=== PATIENT | female | born 1965 | race Caucasian/White ===

== ENCOUNTER 2019-09-13 13:59 | Emergency (ER) | payer BC ==
[2019-09-13 14:08] VITALS: TEMP 99
[2019-09-13] MEDS ORDERED: NITROGLYCERIN SL TABS 0.4 MG TAB SUBLINGUAL STA (14:22)
--- NOTE | 2019-09-13 14:48 | ED ---
General Adult HPI - General Chief complaint: Abdominal Pain Stated complaint: Throat pain Time Seen by Provider: 09/13/19 14:12 Source: patient Mode of arrival: ambulatory Limitations: no limitations - History of Present Illness Initial comments: Patient is a 53-year-old female presenting to the emergency Department with complaints of an esophageal spasm x 2 hours. Patient states she has had these spasms in the past but they have never lasted this long or has been this intense. Patient states prior to this spasm beginning she ate a few pieces of t urkey and mac & cheese and then noticed a spasm starting. She states this spasm feels like her past spasms. Patient states she tried to take a Benadryl tablet to help with her symptoms however she vomited it back up. Patient describes the pain at the distal end of her sternum. She has been unable to eat or drink anything since this spasm started. She has no history of heart disease. She denies recent fever, chills, abdominal pain. She has no other complaints this time. Upon arrival to the ER, BP was elevated at 172/99, rest of vitals are normal. - Related Data Home Medications Medication Instructions Recorded Confirmed Aspirin [Adult Low Dose Aspirin EC] 81 mg PO DAILY 05/18/19 05/18/19 Ibuprofen [Advil] 400 mg PO DAILY PRN 05/18/19 05/18/19 Metoprolol Succinate (ER) [Toprol 25 mg PO HS 05/18/19 05/18/19 Xl] Bristol-3 Fatty Acids [Bristol-3] 1,000 mg PO DAILY 05/18/19 05/18/19 Pediatric Multivitamin No.144 1 each PO DAILY 05/18/19 05/18/19 [Children's Chewable Vitamin] Turmeric Root Extract [Turmeric] 1 dose PO DAILY 05/18/19 05/18/19 Previous Rx's Medication Instructions Recorded Diazepam [Valium] 5 mg PO Q8HR PRN #3 tab 09/13/19 Metoclopramide [Reglan] 10 mg PO BID PRN #5 tab 09/13/19 Allergies Allergy/AdvReac Type Severity Reaction Status Date / Time azithromycin Allergy Unknown Rash/Hives Verified 09/13/19 14:09 [From Zithromax Z-Jose] cannabidiol (CBD) extract Allergy Unknown Dyspnea Verified 09/13/19 14:09 [From Epidiolex] cephalexin [From Keflex] Allergy Unknown Rash/Hives Verified 09/13/19 14:09 erythromycin base Allergy Unknown Rash/Hives Verified 09/13/19 14:09 marijuana Allergy Unknown Dyspnea Verified 09/13/19 14:09 Penicillins Allergy Unknown Rash/Hives Verified 09/13/19 14:09 Sulfa (Sulfonamide Allergy Unknown Dyspnea Verified 09/13/19 14:09 Antibiotics) sulfamethoxazole Allergy Unknown Rash/Hives Verified 09/13/19 14:09 [From Bactrim] trimethoprim [From Bactrim] Allergy Unknown Rash/Hives Verified 09/13/19 14:09 ibuprofen AdvReac Unknown FEELS LIKE Verified 09/13/19 14:09 HER HEAD WILL EXPLODE nitrofurantoin AdvReac Unknown PAIN IN Verified 09/13/19 14:09 [From Macrodantin] EXTREMITIES. Review of Systems ROS Statement: Those systems with pertinent positive or pertinent negative responses have been documented in the HPI. ROS Other: All systems not noted in ROS Statement are negative. Past Medical History Past Medical History: Fibromyalgia, Hypertension Additional Past Medical History / Comment(s): PSORIATIC ARTHRITIS, IRREGULAR HEART BEAT, SNORES, ALLERGIES, HX OF GESTATIONAL DIABETES (2004), KIDNEY STONES., PT STATES SHE HAS A BLISTER ON HER HAND-YELLOW IN THE CENTER AND RED AROUND-LIKE A MOSQUITO BITE- TOLD PT TO COVER IT WHEN SHE COMES. History of Any Multi-Drug Resistant Organisms: None Reported Additional Past Surgical History / Comment(s): WISDOME TEETH Past Anesthesia/Blood Transfusion Reactions: Unable to Obtain, Family History of Problems w/ Anesthesia, Motion Sickness Additional Past Anesthesia/Blood Transfusion Reaction / Comment(s): NO ANESTHESIA HX. MOTHER HAD SEVERE SHAKING FROM XYLOCAINE. Past Psychological History: ADD/ADHD, Anxiety, Depression, PTSD Smoking Status: Never smoker Past Alcohol Use History: None Reported Past Drug Use History: None Reported - Past Family History Father Family Medical History: Cancer, CVA/TIA Mother Family Medical History: CVA/TIA General Exam - General Exam Comments Initial Comments: GENERAL: Patient looks uncomfortable, sitting up straight on the edges the bed. She has vomited once during the exam. HEAD: Atraumatic, normocephalic. EYES: Pupils equal round and reactive to light, extraocular movements intact, sclera anicteric, conjunctiva are normal. ENT: TMs normal, nares patent, oropharynx clear without exudates. Moist mucous membranes. NECK: Normal range of motion, supple without lymphadenopathy or JVD. LUNGS: Breath sounds clear to auscultation bilaterally and equal. No wheezes rales or rhonchi. HEART: Regular rate and rhythm without murmurs, rubs or gallops. ABDOMEN: Soft, nontender, normoactive bowel sounds. No guarding, no rebound. No masses appreciated. : Deferred EXTREMITIES: Normal range of motion, no pitting or edema. No clubbing or cyanosis. NEUROLOGICAL: Normal speech, normal gait. PSYCH: Normal mood, normal affect. SKIN: Warm, Dry, normal turgor, no rashes or lesions noted. Limitations: no limitations Course Vital Signs 09/13/19 09/13/19 14:03 16:43 Temperature 99.0 F Pulse Rate 79 78 Respiratory 18 16 Rate Blood Pressure 172/99 176/95 O2 Sat by Pulse 98 98 Oximetry EKG Findings - EKG Comments: EKG Findings:: Ventricular rate 74, SC interval 160, QTC 457. Normal sinus rhythm. No acute ST segment changes. Medical Decision Making - Medical Decision Making Patient is a 53-year-old female presenting with an esophageal spasm for the past 2 hours. She has had these in the past but they have never lasted this long or this intense. Patient was given nitro to help with symptoms although she vomited that back up. Patient was given Reglan and Valium which did resolve her symptoms. Patient was able to drink a glass of water as well as a some crackers without any difficulty. Patient was observed for another 15 minutes and she is requesting to be discharged. I discussed with patient that although her symptoms are most likely related to her esophageal spasm as her previous episodes, I recommended staying for another troponin or possible observation to rule out cardiac issues. Patient declined, and is requesting to go home. Patient will follow-up with GI for further testing. Patient was giving a couple tablets of Valium in case he spasms happen again. She is in agreement with this plan of care and is stable for discharge at this time. Strict return parameters were discussed with the patient and she verbalized understanding. Patient has remained symptom-free. Case discussed with Dr. Gordon. - Lab Data Result diagrams: 09/13/19 14:42 09/13/19 14:42 Lab Results 09/13/19 09/13/19 09/13/19 Range/Units 14:42 14:42 14:42 WBC 7.7 (3.8-10.6) k/uL RBC 5.08 (3.80-5.40) m/uL Hgb 14.8 (11.4-16.0) gm/dL Hct 44.1 (34.0-46.0) % MCV 86.8 (80.0-100.0) fL MCH 29.1 (25.0-35.0) pg MCHC 33.6 (31.0-37.0) g/dL RDW 13.0 (11.5-15.5) % Plt Count 316 (150-450) k/uL Neutrophils % 64 % Lymphocytes % 23 % Monocytes % 6 % Eosinophils % 4 % Basophils % 1 % Neutrophils # 4.9 (1.3-7.7) k/uL Lymphocytes # 1.8 (1.0-4.8) k/uL Monocytes # 0.4 (0-1.0) k/uL Eosinophils # 0.3 (0-0.7) k/uL Basophils # 0.0 (0-0.2) k/uL Sodium 141 (137-145) mmol/L Potassium 4.7 (3.5-5.1) mmol/L Chloride 106 (98-107) mmol/L Carbon Dioxide 27 (22-30) mmol/L Anion Gap 8 mmol/L BUN 15 (7-17) mg/dL Creatinine 0.76 (0.52-1.04) mg/dL Est GFR (CKD-EPI)AfAm >90 (>60 ml/min/1.73 sqM) Est GFR (CKD-EPI)NonAf >90 (>60 ml/min/1.73 sqM) Glucose 108 H (74-99) mg/dL Calcium 10.2 (8.4-10.2) mg/dL Total Bilirubin 0.4 (0.2-1.3) mg/dL AST 26 (14-36) U/L ALT 23 (4-34) U/L Alkaline Phosphatase 134 H (38-126) U/L Troponin I <0.012 (0.000-0.034) ng/mL Total Protein 8.2 (6.3-8.2) g/dL Albumin 4.9 (3.5-5.0) g/dL Disposition Clinical Impression: Esophageal spasm Disposition: HOME SELF-CARE Condition: Stable Instructions (If sedation given, give patient instructions): Esophageal Spasm (ED) Additional Instructions: Please return to the Emergency Department if symptoms worsen or any other concerns. Follow up with GI as discussed. Prescriptions: Metoclopramide [Reglan] 10 mg PO BID PRN #5 tab PRN Reason: GERD Diazepam [Valium] 5 mg PO Q8HR PRN #3 tab PRN Reason: Spasms Is patient prescribed a controlled substance at d/c from ED?: Yes When asked, does pt state using other controlled substances?: No If prescribed controlled substance>3 days was MAPS reviewed?: Prescribed <3 Days Referrals: None,Stated [Primary Care Provider] - 1-2 days Macy Tolentino MD [STAFF PHYSICIAN] - 1-2 days
[2019-09-13] MEDS ORDERED: METOCLOPRAMIDE 5 MG/ML 2 ML VIAL IVP STA (14:54)
[2019-09-13] MEDS ORDERED: DIAZEPAM 5 MG/ML 2 ML INJ IVP STA (14:54)
[2019-09-13 15:07] LABS: Basophils % (A) 1 %; Eosinophils # (A) 0.3 k/uL (0-0.7); Eosinophils % (A) 4 %; HCT 44.1 % (34.0-46.0); HGB 14.8 gm/dL (11.4-16.0); Lymphocytes # (A) 1.8 k/uL (1.0-4.8); Lymphocytes % (A) 23 %; MCH 29.1 pg (25.0-35.0); MCHC 33.6 g/dL (31.0-37.0); MCV 86.8 fL (80.0-100.0); Mean Platelet Volume 7.5; Monocytes # (A) 0.4 k/uL (0-1.0); Monocytes % (A) 6 %; Neutrophils # (A) 4.9 k/uL (1.3-7.7); Neutrophils % (A) 64 %; Platelet Count 316 k/uL (150-450); RBC 5.08 m/uL (3.80-5.40); WBC 7.7 k/uL (3.8-10.6)
[2019-09-13 15:26] LABS: ALT 23 U/L (4-34); AST 26 U/L (14-36); African American GFR (CKD) >90 (>60 ml/min/1.73 sqM); Albumin 4.9 g/dL (3.5-5.0); Alkaline Phosphatase 134 U/L (38-126); Anion Gap 8 mmol/L; Blood Urea Nitrogen 15 mg/dL (7-17); Calcium 10.2 mg/dL (8.4-10.2); Carbon Dioxide 27 mmol/L (22-30); Chloride 106 mmol/L (98-107); Glucose 108 mg/dL (74-99); Non-African American GFR(CKD) >90 (>60 ml/min/1.73 sqM); Potassium 4.7 mmol/L (3.5-5.1); Sodium 141 mmol/L (137-145); Total Bilirubin 0.4 mg/dL (0.2-1.3); Total Protein 8.2 g/dL (6.3-8.2)
--- NOTE | 2019-09-13 15:34 | XR ---
EXAMINATION TYPE: XR soft tissue neck DATE OF EXAM: 09/13/2019 COMPARISON: NONE HISTORY: Pain TECHNIQUE: 2 views FINDINGS: Epiglottis appears normal. Prevertebral soft tissues are not enlarged. Subglottic trachea a ppears normal. There is some spondylosis in the lower cervical spine. There is mild straightening of the vertebra. IMPRESSION: Spondylotic changes. No fracture.
--- NOTE | 2019-09-13 15:35 | XR ---
EXAMINATION TYPE: XR chest 2V DATE OF EXAM: 09/13/2019 COMPARISON: NONE HISTORY: Pain TECHNIQUE: 2 views FINDINGS: Heart and mediastinum are normal. Lungs are clear. Diaphragm is normal. Bony thorax appears normal. IMPRESSION: Normal chest.
[2019-09-13 16:44] VITALS: BP 176/95; PULSE 78; RESP 16
== END 2019-09-13 16:39 | disposition home or self-care (01) ==
LOC: EC 13:59
DX: K22.4 Dyskinesia of esophagus (principal); I10 Essential (primary) hypertension; Z79.82 Long term (current) use of aspirin; Z79.899 Other long term (current) drug therapy; Z88.0 Allergy status to penicillin; Z88.1 Allergy status to other antibiotic agents; Z88.2 Allergy status to sulfonamides; Z88.6 Allergy status to analgesic agent; Z88.8 Allergy status to other drugs, medicaments and biological substances
CPT/HCPCS: 36415; 93005; 80053; 84484; 85025; 70360; 71046; 99284; 96374; 96375; J2765; J3360

== ENCOUNTER 2022-09-30 16:25 | Emergency (ER) | payer BC ==
[2022-09-30] MEDS ORDERED: METOCLOPRAMIDE 5 MG/ML 2 ML VIAL IVP STA (16:47)
--- NOTE | 2022-09-30 16:50 | ED ---
General Adult HPI - General Chief complaint: Skin/Abscess/Foreign Body Stated complaint: food stuck in esphogas Time Seen by Provider: 09/30/22 16:38 Source: patient, RN notes reviewed, old records reviewed Mode of arrival: ambulatory Limitations: no limitations - History of Present Illness Initial comments: 56-year-old female presents to the emergency room with complaints of eating beef about an hour ago, with feeling of it being stuck in her esophagus. She has a history of this happening, states usually with beef. She states has esophageal spasms that occur monthly. Patient has a history of fibromyalgia, anxiety, hypertension and psoriatic arthritis. -: hour(s) (1) Location: chest Radiation: non-radiation Severity scale (1-10): 8 Quality: constant Consistency: constant Improves with: none Associated Symptoms: nausea/vomiting - Related Data Home Medications Medication Instructions Recorded Confirmed Aspirin [Adult Low Dose Aspirin EC] 81 mg PO DAILY 05/18/19 05/18/19 Ibuprofen [Advil] 400 mg PO DAILY PRN 05/18/19 05/18/19 Metoprolol Succinate (ER) [Toprol 25 mg PO HS 05/18/19 05/18/19 Xl] Franklin-3 Fatty Acids [Franklin-3] 1,000 mg PO DAILY 05/18/19 05/18/19 Pediatric Multivitamin No.144 1 each PO DAILY 05/18/19 05/18/19 [Children's Chewable Vitamin] Turmeric Root Extract [Turmeric] 1 dose PO DAILY 05/18/19 05/18/19 Previous Rx's Medication Instructions Recorded Metoclopramide [Reglan] 10 mg PO BID PRN #5 tab 09/13/19 diazePAM [Valium] 5 mg PO Q8HR PRN #3 tab 09/13/19 Allergies Allergy/AdvReac Type Severity Reaction Status Date / Time azithromycin Allergy Unknown Rash/Hives Verified 09/30/22 16:30 [From Zithromax Z-Jose] cannabidiol (CBD) extract Allergy Unknown Dyspnea Verified 09/30/22 16:30 [From Epidiolex] cephalexin [From Keflex] Allergy Unknown Rash/Hives Verified 09/30/22 16:30 erythromycin base Allergy Unknown Rash/Hives Verified 09/30/22 16:30 marijuana (cannabis) Allergy Unknown Dyspnea Verified 09/30/22 16:30 [marijuana] Penicillins Allergy Unknown Rash/Hives Verified 09/30/22 16:30 Sulfa (Sulfonamide Allergy Unknown Dyspnea Verified 09/30/22 16:30 Antibiotics) sulfamethoxazole Allergy Unknown Rash/Hives Verified 09/30/22 16:30 [From Bactrim] trimethoprim [From Bactrim] Allergy Unknown Rash/Hives Verified 09/30/22 16:30 ibuprofen AdvReac Unknown FEELS LIKE Verified 09/30/22 16:30 HER HEAD WILL EXPLODE nitrofurantoin AdvReac Unknown PAIN IN Verified 09/30/22 16:30 [From Macrodantin] EXTREMITIES. Review of Systems ROS Statement: Those systems with pertinent positive or pertinent negative responses have been documented in the HPI. ROS Other: All systems not noted in ROS Statement are negative. Past Medical History Past Medical History: Fibromyalgia, Hypertension Additional Past Medical History / Comment(s): PSORIATIC ARTHRITIS, IRREGULAR HEART BEAT, SNORES, ALLERGIES, HX OF GESTATIONAL DIABETES (2004), KIDNEY STONES., PT STATES SHE HAS A BLISTER ON HER HAND-YELLOW IN THE CENTER AND RED AROUND-LIKE A MOSQUITO BITE- TOLD PT TO COVER IT WHEN SHE COMES. History of Any Multi-Drug Resistant Organisms: None Reported Additional Past Surgical History / Comment(s): WISDOME TEETH, basal cell carcinoma removal from right side of face Past Anesthesia/Blood Transfusion Reactions: Unable to Obtain, Family History of Problems w/ Anesthesia, Motion Sickness Additional Past Anesthesia/Blood Transfusion Reaction / Comment(s): NO ANESTHESIA HX. MOTHER HAD SEVERE SHAKING FROM XYLOCAINE. Past Psychological History: ADD/ADHD, Anxiety, Depression, PTSD Smoking Status: Never smoker Past Alcohol Use History: None Reported Past Drug Use History: None Reported - Past Family History Father Family Medical History: Cancer, CVA/TIA Mother Family Medical History: CVA/TIA General Exam Limitations: no limitations General appearance: alert, in no apparent distress Head exam: Present: atraumatic Eye exam: Absent: scleral icterus, conjunctival injection, periorbital swelling ENT exam: Present: mucous membranes moist Neck exam: Absent: tenderness, meningismus Respiratory exam: Present: normal lung sounds bilaterally. Absent: respiratory distress, accessory muscle use Cardiovascular Exam: Present: regular rate GI/Abdominal exam: Present: soft Extremities exam: Present: normal capillary refill Neurological exam: Present: alert, oriented X3, normal gait Psychiatric exam: Present: anxious Skin exam: Present: warm, dry, normal color. Absent: cyanosis, diaphoretic, petechiae, pallor Course Vital Signs 09/30/22 09/30/22 09/30/22 16:27 17:04 18:04 Temperature 97.3 F L 98.2 F Pulse Rate 84 75 73 Respiratory 18 16 18 Rate Blood Pressure 166/84 141/82 128/77 O2 Sat by Pulse 98 99 97 Oximetry 09/30/22 18:17 Temperature 98.0 F Pulse Rate 76 Respiratory 17 Rate Blood Pressure 130/72 O2 Sat by Pulse 95 Oximetry - Reevaluation(s) Reevaluation #1: 09/30/22 17:35 She continues to have foreign body sensation after Valium and Reglan. No vomiting at this time. She was offered transfer to [facility] for endoscopy and declines at this time states that she wants to just wait a little bit longer. We will try glucagon IV with warm water orally. Time: 17:35 Reevaluation #2: 09/30/22 18:05 Patient requesting nitroglycerin, states that she had relief last time with this medication. According to medical records patient was not relieved with nitro and was given Reglan and Valium which did resolve her symptoms. I am agreeable to trying nitroglycerin as the Valium and Reglan and glucagon, have not worked thus far. Time: 18:05 Reevaluation #3: 09/30/22 18:56 She states that she is now feeling better and does not want to be transferred to [facility]. She wishes to be discharged. Time: 18:56 Medical Decision Making - Medical Decision Making She presents with retrosternal chest pain after eating a piece of beef about one hour prior to arrival. She has a history of this in the past and seen in the emergency room. Has not seen gastroenterology. States she's been having episodess more frequently with spasms and most often problems with swallowing beef. Patient has a history of fibromyalgia, hypertension, psoriatic arthritis, basal cell carcinoma She was given Valium and Reglan IV with no improvement in her symptoms. We then tried glucagon IV with warm water ingestion, no improvement. She was given nitroglycerin also with no improvement. Chest x-ray interpreted by me shows no evidence of esophageal foreign body. Trachea midline. No evidence of consolidation. Radiologist interpretation no acute cardiopulmonary disease or process. No radiopaque foreign body. She was offered transfer to [facility] for GI services that are not available here today and is agreeable, states will have her driver messenger her. Accepting Dr. Vasquez Upon preparing paperwork for transfer patient states that she now does not want to be transferred and is feeling better and wants to be discharged. She was instructed to follow up with gastroenterology. My attending is Dr Velasquez Was pt. sent in by a medical professional or institution? @ -no Did you speak to anyone other than the patient for history? @ -no Did you review nursing and triage notes? @ -yes i agree Were old charts reviewed? @ -yes previous visits in ER for same Differential Diagnosis? @ -Esophageal spasm, ingested foreign body, esophageal stricture EKG interpreted by me (3pts min.)? @ -[none] X-rays interpreted by me (1pt min.)? @ -yes as above CT interpreted by me (1pt min.)? @ -[none] U/S interpreted by me (1pt. min.)? @ -[none] What testing was considered but not performed? (CT, X-rays, U/S, labs)? Why? @ no What meds were considered but not given? Why? @ -none Did you discuss the management of the patient with other professionals? @ -no Did you reconcile home meds? @ -no Was smoking cessation discussed for >3mins.? @ -[none] Was critical care preformed (if so, how long)? @ -no Were there social determinants of health that impacted care today? How? (Homelessness, low income, unemployed, alcoholism, drug addiction, transportation, low edu. Level, literacy, decrease access to med. care, group home, rehab)? @ -none Was there de-escalation of care discussed even if they declined? (Discuss DNR or withdrawal of care, Hospice)? @ -no What co-morbidities impacted this encounter? (DM, HTN, Smoking, COPD, CAD, Cancer, CVA, Hep., AIDS, mental health diagnosis, sleep apnea, morbid obesity)? @ -Fibromyalgia, hypertension, obesity Was patient admitted / discharged? @ -Discharged Undiagnosed new problem with uncertain prognosis? @ -[none] Drug Therapy requiring intensive monitoring for toxicity (Heparin, Nitro, Insulin, Cardizem)? @ -no Were any procedures done? @ -no Diagnosis/symptom? @ -Esophageal foreign body sensation Acute, or Chronic, or Acute on Chronic? @ -Acute on chronic Uncomplicated (without systemic symptoms) or Complicated (systemic symptoms)? @ -Complicated Side effects of treatment? @ -[none] Exacerbation, Progression, or Severe Exacerbation] @ -[no] Poses a threat to life or bodily function? @ -[no] Disposition Clinical Impression: Sensation of foreign body in esophagus Disposition: HOME SELF-CARE Condition: Good Instructions (If sedation given, give patient instructions): Esophageal Foreign Body (ED) Additional Instructions: Please follow-up with gastroenterology for continuation of care. Return to the emergency room with any new or concerning symptoms. Is patient prescribed a controlled substance at d/c from ED?: No Referrals: Jeyson Mijares DO [Primary Care Provider] - 1-2 days Macy Tolentino MD [STAFF PHYSICIAN] - 1-2 days Time of Disposition: 18:55 Decision Date: 09/30/22 Decision Time: 18:30 - Out of Hospital Transfer - Req. Specs Out of Hospital Transfer - Requested Specifics: Other Emergency Center ([facility])
[2022-09-30] MEDS ORDERED: GLUCAGON 1 MG/ML VIAL IVP STA (17:35)
[2022-09-30] MEDS ORDERED: NITROGLYCERIN SL TABS 0.4 MG TAB SUBLINGUAL STA (18:03)
--- NOTE | 2022-09-30 18:04 | XR ---
EXAMINATION TYPE: XR chest 2V DATE OF EXAM: 09/30/2022 5:11 PM COMPARISON: Chest x-ray 09/13/2019 TECHNIQUE: XR chest 2V . CLINICAL INDICATION:Female, 56 years old with history of foreign body; FINDINGS: Lungs/Pleura: There is no evidence of pleural effusion, focal consolidation, or pneumothorax. Pulmonary vascularity: Unremarkable. Heart/mediastinum: Cardiomediastinal silhouette is unremarkable. Musculoskeletal: No acute osseous pathology. Other findings: No radiopaque foreign body. IMPRESSION: No acute cardiopulmonary disease/process. No radiopaque foreign body.
[2022-09-30 18:18] VITALS: BP 130/72; PULSE 76; RESP 17; TEMP 98
== END 2022-09-30 19:05 | disposition home or self-care (01) ==
LOC: EC 16:25
DX: T18.128A Food in esophagus causing other injury, initial encounter (principal); I10 Essential (primary) hypertension; F41.9 Anxiety disorder, unspecified; F32.A Depression, unspecified; Z88.0 Allergy status to penicillin; Z88.2 Allergy status to sulfonamides; Z88.1 Allergy status to other antibiotic agents; Z88.6 Allergy status to analgesic agent; Z88.8 Allergy status to other drugs, medicaments and biological substances; Z79.82 Long term (current) use of aspirin; Z79.899 Other long term (current) drug therapy
CPT/HCPCS: 71046; 99284; 96374; 96375 ×2; J1610; J2765; J3360

== ENCOUNTER → 2023-01-02 | Outpatient (CLI) | payer BC ==
--- NOTE | 2023-01-02 10:51 | CA ---
Exercise Stress Test Report Name: Michelle Doramn Exam Date: 01/02/2023 09:12 Exam Location: [place] Stress Ht (in): 68 Wt (lb): 227 BSA: 2.16 Ordering Phys: Jeyson Mijares DO Referring Phys: SADIE, Technologist: Ron Mast Age: 57 Gender: F : 1965 Procedure CPT: Indications: R94.31 ABNORMAL ELECTROCARDIOGRAM [ECG] [EKG] ICD-10 Codes: Patient History: Medications: Meds past 24 hrs: Pretest Chest Pain: STRESS TEST Protocol Exercise Duration (min:sec): 11:[address] Depressions (mm): 0 Angina Score: 0 Marshall Score: 11 Resting HR (bpm): 86 Peak HR (bpm): 152 Resting BP (mmHg): 131 / 81 Peak BP (mmHg): 1965 / 62 MPHR: 165 Target HR: 140 % MPHR: 92 METS: 10.3 Total Dose: Peak Dose: Atropine: Double Product: [id number] BP Response: Normal Resting Blood Pressure - Appropriate Stress Termination: Reached target heart rate Stress Symptoms: NO SYMPTOMS Stress Summary: The patient's target heart rate was achieved ECG ANALYSIS Resting ECG: Sinus rhythm. Normal conduction. No arrhythmias. Normal repolarization. Stress ECG: No ECG evidence of ischemia with exercise. CONCLUSIONS Patient falls into low-risk group (DTS >= +5). This associates the patient with an annual CV mortality <= 0.5%. 1. Good exercise tolerance 2.Normal ST segment response to stress. 3. Normal electrocardiographic stress testing Dr. Kecia Morales MD (Electronically Signed) Final Date: 02 Jan 2023 10:50
== END | disposition home or self-care (01) ==
LOC: RADNMMAIN 08:43
PROVIDERS: ATTEND Family Medicine
DX: R94.31 Abnormal electrocardiogram [ECG] [EKG] (principal); R07.9 Chest pain, unspecified
CPT/HCPCS: 93017

== ENCOUNTER → 2023-03-16 | Outpatient (CLI) | payer BC ==
--- NOTE | 2023-03-16 11:09 | XR ---
EXAMINATION TYPE: XR Hip Bilateral and AP pelvis DATE OF EXAM: 03/16/2023 10:00 AM INDICATION: Patient age:Female; 57 years old; Reason for study: PAIN; COMPARISON: None. TECHNIQUE: The bilateral hips were examined in the frontal and lateral projections and a AP pelvis. FINDINGS: No evidence for acute process, joint dislocation or significant soft tissue swelling. Osteo phyte formation of the superior acetabulum of the hips. IMPRESSION: 1. No evidence for acute process. 2. Mild hip osteoarthrosis bilaterally.
--- NOTE | 2023-03-16 11:15 | XR ---
EXAMINATION TYPE: XR foot complete bilateral DATE OF EXAM: 03/16/2023 10:00 AM INDICATION: Patient age:Female; 57 years old; Reason for study: PAIN; PHH. COMPARISON: None TECHNIQUE: The bilateral feet were examined in the AP, oblique, and lateral projections. FINDINGS: No evidence of any acute osseous pathology. No evidence of soft tissue swelling. Joints are preserve d. Calcaneal plantar spurring is seen bilaterally. Minimal multifocal joint space tearing and osteophyte formation. IMPRESSION: 1. No evidence of acute fracture. 2. Minimal degeneration changes throughout the feet.
--- NOTE | 2023-03-16 11:18 | XR ---
EXAMINATION TYPE: XR lumbar spine 2 or 3V DATE OF EXAM: 03/16/2023 10:00 AM INDICATION: Patient age:Female; 57 years old; Reason for study: PAIN; COMPARISON: None TECHNIQUE: Frontal, lateral and coned in L5-S1 lateral views of the spine. FINDINGS: No evidence of any acute osseous pathology. No evidence of loss of vertebral body height i s seen. Is increased lordosis of the lower lumbar spine. Mild scattered disc space narrowing worse at L5-S1. Multilevel marginal osteophyte formation throughout the visualized spine worse in the lower l umbar spine. There is facet joint arthropathy throughout the spine worse at L5-S1. Scattered at least mild neural foraminal stenosis at L5-S1. The spinous processes and straight pseudoarthrosis at L4-L5 . IMPRESSION: 1. No acute fracture. 2. Moderate multilevel disc degeneration. 3. Findings of Baastrup's disease.
[2023-03-16 13:22] LABS: Basophils # (A) 0.03 X 10*3/uL (0.00-0.10); Basophils % (A) 0.6 %; Eosinophils # (A) 0.17 X 10*3/uL (0.04-0.35); Eosinophils % (A) 3.2 %; HCT 42.6 % (37.2-46.3); Lymphocytes # (A) 1.78 X 10*3/uL (0.90-5.00); Lymphocytes % (A) 33.3 %; MCH 28.9 pg (27.0-32.0); MCHC 32.9 d/dL (32.0-37.0); MCV 87.8 FL (80.0-97.0); Mean Platelet Volume 10.7 FL (9.5-12.2); Monocytes % (A) 9.3 %; NRBC Per 100 WBC 0 X 10*3/uL (0.00-0.01); Neutrophils # (A) 2.86 X 10*3/uL (1.80-7.70); Neutrophils % (A) 53.4 %; Platelet Count 276 X 10*3/uL (140-440); RBC 4.85 X 10*6/uL (4.10-5.20); WBC 5.35 X 10*3/uL (4.50-10.00)
[2023-03-16 13:42] LABS: ALT 16 U/L (8-44); AST 15 U/L (13-35); Albumin 4.8 d/dL (3.8-4.9); Alkaline Phosphatase 104 U/L (41-126); BUN/Creat Ratio 17.44 Ratio (12.00-20.00); Blood Urea Nitrogen 15.7 mg/dL (9.0-27.0); Calcium 10.1 mg/dL (8.7-10.3); Carbon Dioxide 24.9 mmol/L (21.6-31.8); Chloride 104 mmol/L (96-109); Chol/HDL Ratio 4.03 Ratio; Globulin 2.4 d/dL (1.6-3.3); Glucose 92 mg/dL (70-110); LDL Cholesterol,Calculated 146.1 mg/dL (0.0-131.0); Potassium 4.7 mmol/L (3.5-5.5); Sodium 142 mmol/L (135-145); T4, Free (Free Thyroxine) 1.29 ng/dL (0.80-1.80); Thyroid Peroxidase Antibodies <9.0 U/mL (0.0-33.0); Total Bilirubin 0.6 mg/dL (0.3-1.2); Total Protein 7.2 d/dL (6.2-8.2)
== END | disposition home or self-care (01) ==
LOC: LABWHC1 09:17
PROVIDERS: ATTEND Family Medicine
DX: M16.0 Bilateral primary osteoarthritis of hip (principal); M51.36 Other intervertebral disc degeneration, lumbar region; M48.26 Kissing spine, lumbar region; M79.671 Pain in right foot; I10 Essential (primary) hypertension; R31.9 Hematuria, unspecified; Z83.49 Family history of other endocrine, nutritional and metabolic diseases
CPT/HCPCS: 36415; 72100; 73521; 80053; 80061; 83970; 84439; 84443; 84481; 85025; 86376; 86800

== ENCOUNTER → 2023-09-24 | Outpatient (CLI) | payer BC ==
--- NOTE | 2023-09-24 09:49 | US ---
EXAMINATION TYPE: US renal artery duplex complet DATE OF EXAM: 09/24/2023 COMPARISON: NONE CLINICAL INDICATION: Female, 57 years old with history of I10 ESSENTIAL HYPERTENSION; uncontrolled HT N, on meds MEASUREMENTS: RENAL SIZE: Right Kidney: 11.2 x 5.5 x 4.4 cm Left Kidney: 11.0 x 6.2 x 5.5 Right Kidney: No hydronephrosis or lesions seen Left Kidney: No hydronephrosis or lesions seen Abd Aorta: No AAA visualized RESISTANCE INDEX Right: 0.68 Left: 0.7 RA/AO RATIO (< 3.5 ) Right: 1.5 Left: 1.1 RENAL ARTERY VELOCITY ( < 180 cm/s) Right: 150 Left: 107 IMPRESSION: No evidence for renal artery stenosis.
== END | disposition home or self-care (01) ==
LOC: RADUSWWP 07:45
PROVIDERS: ATTEND Family Medicine
DX: I10 Essential (primary) hypertension (principal)
CPT/HCPCS: 93975

== ENCOUNTER → 2023-11-12 | Outpatient (CLI) | payer BC ==
[2023-11-12 15:55] VITALS: BP 123/75; PULSE 69; RESP 16; TEMP 98.4
--- NOTE | 2023-11-12 16:37 | P.SLEEP ---
History of Present Illness H&P Date: 11/12/23 This is a 57-year-old female patient who is coming in to be evaluated regarding her obstructive sleep apnea and make sure she is on the appropriate treatment. The patient has a extensive list of comorbid conditions most significant of which is history of depression and history of PTSD related to the service in the . She also has had issues with ADHD, hypertension, psoriasis with psoriatic arthritis and fibromyalgia. She is obese. More recently, the patient was having symptoms of fatigue and tiredness and sleepiness along with snoring and sleep fragmentation. She would also wake up choking and gasping for air and based on those symptoms, the patient was given a home sleep study and this was completed on 09/09/2023 and the patient was found to have severe obstructive sleep apnea with an AHI of 34.9. Following that, the patient was given an APAP machine and she has been using it for the past 1-1/2 months. Initially, she had some difficulty with tolerance and subsequently her treatment became better and the patient is currently tolerating the treatment reasonably well. Based on a 30-day compliancy from her machine, the patient's overall compliance is in order 100% and the patient has utilized the machine more than 4 hours 100% of the time averaging around 6.5 hours of CPAP use per night. The patient is currently on APAP mode pressures of 5/15 cm of water. The P95th percentile pressure is at 10.8 with a leak of 60 L/min and her AHI is down to 1.2 while on treatment. The patient is using a vitera Fullface mask medium size. She is seeing some benefit in sleep quality. Her sleep is essentially of a poor quality related to her fibromyalgia and chronic pain as the patient has difficulties in getting herself comfortable. She has a nonrestorative sleep. She has tried various treatments for pain control and depression and symptoms of PTSD. She experienced side effects and currently she is on no active treatment such as SSRIs. She has also tried and experienced side effects to Neurontin. Same for Cymbalta. No recent weight gain. She goes to bed around 10 PM and wakes up frequently middle of the night and she ultimately gets out of bed at around 6:30 AM in the morning. No naps during the day. Her current Drummond score is at 6. No major cardiovascular complications. Review of Systems Constitutional: Reports daytime sleepiness, Reports fatigue, Reports weight gain Eyes: denies as per HPI, denies blurred vision, denies bulging eye, denies decreased vision, denies diplopia, denies discharge, denies dry eye, denies irritation, denies itching, denies pain, denies photophobia, denies loss of peripheral vision, denies loss of vision, denies tunnel vision/blind spots Ears: deny: decreased hearing, ear discharge, earache, tinnitus Ears, nose, mouth and throat: Reports as per HPI Breasts: absent: as per HPI, change in shape, gynecomastia, masses, nipple discharge, pain, skin changes, swelling Breasts: Reports as per HPI Cardiovascular: Reports as per HPI Respiratory: Reports sleep apnea Gastrointestinal: Reports as per HPI Genitourinary: Reports as per HPI Menstruation: Reports as per HPI Musculoskeletal: Reports as per HPI Musculoskeletal: absent: ankle pain, ankle stiffness, ankle swelling Integumentary: Reports as per HPI Neurological: Reports as per HPI Psychiatric: Reports as per HPI (History of PTSD and depression), Reports anxiety, Reports difficulty concentrating, Reports hypersomnia, Reports insomnia, Reports irritability, Reports sleep disturbances Endocrine: Reports as per HPI, Reports fatigue Hematologic/Lymphatic: Reports as per HPI Allergic/Immunologic: Reports as per HPI Past Medical History Past Medical History: Fibromyalgia, Hypertension, Sleep Apnea/CPAP/BIPAP Additional Past Medical History / Comment(s): PSORIATIC ARTHRITIS, IRREGULAR HEART BEAT, SNORES, ALLERGIES, HX OF GESTATIONAL DIABETES (2004), KIDNEY STONES. History of Any Multi-Drug Resistant Organisms: None Reported Past Surgical History: Section Additional Past Surgical History / Comment(s): WISDOME TEETH, basal cell carcinoma removal from right side of face, removed R lower eye lid, Past Anesthesia/Blood Transfusion Reactions: Unable to Obtain, Family History of Problems w/ Anesthesia, Motion Sickness Additional Past Anesthesia/Blood Transfusion Reaction / Comment(s): NO ANESTHESIA HX. MOTHER HAD SEVERE SHAKING FROM XYLOCAINE. Past Psychological History: Anxiety, Depression, PTSD Smoking Status: Never smoker Past Alcohol Use History: None Reported Past Drug Use History: None Reported Additional Drug Use History / Comment(s): TRIED CBD OIL BUT IS ALLERGIC - Past Family History Father Family Medical History: Cancer, CVA/TIA Mother Family Medical History: CVA/TIA Medications and Allergies Home Medications Medication Instructions Recorded Confirmed Type Ibuprofen [Advil] 400 mg PO DAILY 05/18/19 11/12/23 History Eucha-3 Fatty Acids [Eucha-3] 1,000 mg PO DAILY 05/18/19 11/12/23 History Turmeric Root Extract [Turmeric] 1 dose PO DAILY 05/18/19 11/12/23 History ALPRAZolam [Xanax] PRN 11/12/23 History Albuterol Inhaler [Ventolin Hfa PRN 11/12/23 History Inhaler] Azelastine HCl [Astepro] 11/12/23 History Nitroglycerin 11/12/23 History amLODIPine 10 mg PO DAILY 11/12/23 11/12/23 History carvediloL [Coreg] 11/12/23 History diphenhydrAMINE [Benadryl] 11/12/23 History lisinopriL 11/12/23 History Allergies Allergy/AdvReac Type Severity Reaction Status Date / Time azithromycin Allergy Unknown Rash/Hives Verified 09/30/22 16:30 [From Zithromax Z-Jose] cannabidiol (CBD) extract Allergy Unknown Dyspnea Verified 09/30/22 16:30 [From Epidiolex] cephalexin [From Keflex] Allergy Unknown Rash/Hives Verified 09/30/22 16:30 erythromycin base Allergy Unknown Rash/Hives Verified 09/30/22 16:30 marijuana (cannabis) Allergy Unknown Dyspnea Verified 09/30/22 16:30 [marijuana] Penicillins Allergy Unknown Rash/Hives Verified 09/30/22 16:30 Sulfa (Sulfonamide Allergy Unknown Dyspnea Verified 09/30/22 16:30 Antibiotics) sulfamethoxazole Allergy Unknown Rash/Hives Verified 09/30/22 16:30 [From Bactrim] trimethoprim [From Bactrim] Allergy Unknown Rash/Hives Verified 09/30/22 16:30 ibuprofen AdvReac Unknown FEELS LIKE Verified 09/30/22 16:30 HER HEAD WILL EXPLODE nitrofurantoin AdvReac Unknown PAIN IN Verified 09/30/22 16:30 [From Macrodantin] EXTREMITIES. Patchouli AdvReac Anaphylaxis Uncoded 11/12/23 14:15 Physical Exam Vitals: Vital Signs Temp Pulse Resp BP Pulse Ox 11/12/23 15:22 98.4 F 69 16 123/75 96 Intake and Output 11/12/23 11/12/23 11/12/23 06:59 14:59 22:59 Other: Weight 112.037 kg The patient appeared well nourished and normally developed. Vital signs as documented. Head exam is unremarkable. No scleral icterus or corneal arcus noted. Neck is without jugular venous distension, thyromegaly, or carotid bruits. The patient is a Mallampati class IV with significant crowding in the posterior pharynx. Carotid upstrokes are brisk bilaterally. Lungs are clear to auscultation and percussion. Cardiac exam reveals the PMI to be normally sized and situated. Rhythm is regular. First and second heart sounds normal. No murmurs, rubs or gallops. Abdominal exam reveals normal bowel sounds, no masses, no organomegaly and no aortic enlargement. Extremities are nonedematous and both femoral and pedal pulses are normal. Examination of the skin revealed no evidence of significant rashes, suspicious appearing nevi or other concerning lesions. Neurologically, the patient is awake and alert and the patient does not have any focal neurological deficit. Cranial nerves are essentially intact. Assessment and Plan Plan: Obstructive sleep apnea, severe based on a home sleep study that was done on 09/06/2023. The patient was found to have a AHI of 34.9. The patient was given an APAP machine pressures of 5/15 cm of water. Chronic hypersomnia, multifactorial. Her hypersomnia and fatigue is partially contributed by her obstructive sleep apnea and the patient has demonstrated effective treatment based on the compliance data reviewed from her machine. Her current Drummond score is at 6. Fibromyalgia, failed medical treatment PTSD Depression History of ADHD Hypertension History of nephrolithiasis and kidney stones History of psoriasis with psoriatic arthritis Obesity with a BMI of 38.7 Plan The patient has diagnosis of severe obstructive sleep apnea. The patient has been effective treated with an APAP machine pressures of 5/15 cm of water and she is using a fullface mask. Treatment has been successful. Compliancy check was done and the patient has been successfully treated. I do not think there is any need for pressure adjustments. Will keep a fullface mask for now as the patient has been quite comfortable with the current mask. Encourage weight loss. Maintain good sleep hygiene measures. Some improvement in the daytime fatigue and sleepiness. Note that her sleep apnea is effectively treated and her residual symptoms are probably due to her other comorbidities which include fibromyalgia and depression. I would suggest following up with her primary care physician regarding treatment of other comorbid conditions. From the sleep standpoint, she is effectively treated and will encourage to use her CPAP as the patient has significant and severe obstructive sleep apnea. She meets insurance tenderness for compliancy. No need for any further adjustment. Continue treatment for now. Sleep Note - Sleep Data ESS Total: 6 - Sleep Note Sleep Note: Temperature: 98.4 F Pulse Rate: 69 Respiratory Rate: 16 Blood Pressure: 123/75 SpO2: 96 Height: 5 ft 7 in Weight: 112.037 kg BMI: Neck Circumference: 16
== END | disposition home or self-care (01) ==
LOC: 3 N SLEEP 13:58
PROVIDERS: ATTEND Internal Medicine Critical Care Medicine
DX: G47.33 Obstructive sleep apnea (adult) (pediatric) (principal); G47.10 Hypersomnia, unspecified; M79.7 Fibromyalgia; F43.10 Post-traumatic stress disorder, unspecified; F32.A Depression, unspecified; F90.9 Attention-deficit hyperactivity disorder, unspecified type; I10 Essential (primary) hypertension; E66.9 Obesity, unspecified; Z68.38 Body mass index [BMI] 38.0-38.9, adult; Z88.1 Allergy status to other antibiotic agents; Z88.2 Allergy status to sulfonamides; Z88.0 Allergy status to penicillin; Z88.8 Allergy status to other drugs, medicaments and biological substances; Z91.09 Other allergy status, other than to drugs and biological substances; Z91.018 Allergy to other foods; Z91.048 Other nonmedicinal substance allergy status; Z88.5 Allergy status to narcotic agent; Z79.899 Other long term (current) drug therapy; Z87.442 Personal history of urinary calculi; Z87.39 Personal history of other diseases of the musculoskeletal system and connective tissue
CPT/HCPCS: 99211